=== PATIENT | female | born 1980 | race Caucasian/White ===

== ENCOUNTER 2024-01-06 11:33 | Outpatient (REF) | payer MEDICAID, SELFPAY ==
--- NOTE | 2024-01-06 10:55 | PAPFT_PTH ---
PATIENT: Christine Sanchez LOC: [facility] U#:[id number] AGE/SX: 43/F ROOM: RE01/06/[address]: Krystal Hawk NP : 1980 BED: DIS: 01/06/2024 SPEC #: [id number] RECD: 01/06/24 13:08 STATUS: KAYLA PLAZA #: [id number] RAF: 01/06/24 10:[address]: Krystal Hawk NP DEPT: [facility] Cytology RECD BY: Cleo Nance ENTERED: 01/06/24 13:08 SP TYPE: PAPFT OT DR: None Tissues: 1 - CX/ENDOCX FOR PAP SMEARS Procedures: PAP THIN PREP/[facility] Screening HPV DNA PROBE Comments: [id number]
== END 2024-01-06 11:34 | disposition home or self-care (01) ==
LOC: LBN 11:33
PROVIDERS: Visit Provider Nurse Practitioner Women's Health
DX: Z01.419 Encounter for gynecological examination (general) (routine) without abnormal findings (principal); Z12.4 Encounter for screening for malignant neoplasm of cervix; Z87.410 Personal history of cervical dysplasia; Z12.31 Encounter for screening mammogram for malignant neoplasm of breast
CPT/HCPCS: 88142; 87624

== ENCOUNTER → 2024-01-10 00:19 | Outpatient (CLI) | payer MEDICAID, SELFPAY ==
--- NOTE | 2024-01-10 12:00 | DI.MAMMO_ITS ---
Exam(s) MAMMO SCREENING EXAM: MAMMO SCREENING CLINICAL HISTORY: screening TECHNIQUE: Mammograms were interpreted according to the usual protocol including computer analysis w [employer] CAD system, tomosynthesis and C-view imaging. COMPARISON: None. Baseline examination. FINDINGS: The breasts are composed of heterogeneously dense fibroglandular densities, Breast Density category C . No suspicious masses or suspicious microcalcifications are seen. No skin thickening or abnormal axillary lymph nodes are seen. IMPRESSION: BI-RADS Category 1, Negative mammogram. Yearly screening mammography is recommended. Breast Density Category C, heterogeneously Dense. The mammogram demonstrates the patient's breast tissue is dense. Dense breast tissue is very common a nd is not abnormal but dense breast tissue can make it harder to find cancer on a mammogram. Also, de nse breast tissue may increase breast cancer risk. This information about the result of the mammogram report was provided to the patient to raise their awareness. Use this report when you speak with the patient about their risks for breast cancer, which includes their family history. At that time, you may recommend additional screening tests (Ultrasound or MRI) as they might be useful based on their r isk. A negative radiographic report should not delay biopsy if a dominant or clinically suspicious mass is present. Up to ten percent of cancers are not identified on mammography. A negative report may reinforce clinical impression. Adenosis and dense breasts may obscure an underlying neoplasm. False positive reports average 6 to 10%.
== END ==
PROVIDERS: Visit Provider Nurse Practitioner Women's Health
DX: Z12.31 Encounter for screening mammogram for malignant neoplasm of breast (principal); R92.333 Mammographic heterogeneous density, bilateral breasts
CPT/HCPCS: 77063; 77067

== ENCOUNTER 2024-01-10 02:45 | Outpatient (CLI) | payer MEDICAID, SELFPAY ==
[2024-01-10 11:24] LABS: HCT 37.5 % (36.0-46.0); HGB 11.8 g/dL (11.2-15.7); MCH 27.5 pg (27.0-33.0); MCHC 31.5 % (32.0-36.0); MCV 87 fL (80-95); MPV 8.6 fL (8.0-11.0); Platelet Count 326 10^3/uL (130-400); RBC 4.29 10^6/uL (3.93-5.22); RDW 14.1 % (11.7-14.6); RDW-SD 45.2 fL; WBC 5.75 10^3/uL (4.4-10.8)
[2024-01-10 11:54] LABS: ALT 13 U/L (14-59); AST 14 U/L (15-37); Albumin 3.9 g/dL (3.4-5.0); Alkaline Phosphatase 43 U/L (46-116); BUN 11 mg/dL (7-18); Bilirubin, Total 0.5 mg/dL (0.2-1.0); CREATININE 0.8 mg/dL (0.55-1.02); Calcium 8.7 mg/dL (8.5-10.1); Calculated LDL 131 mg/dL (<100); Chloride 106 mmol/L (98-107); Cholesterol 219 mg/dL (<200); Glucose 95 mg/dL (74-106); HDL Cholesterol 73 mg/dL (40-60); Potassium 3.8 mmol/L (3.5-5.1); Sodium 141 mmol/L (136-145); TSH (W/Ref FT4) 2.83 uIU/mL (0.36-3.74); Total Protein 7.5 g/dL (6.4-8.2); Triglyceride 75 mg/dL (<150)
== END 2024-01-10 02:46 | disposition home or self-care (01) ==
LOC: LBO 02:47
PROVIDERS: Visit Provider Nurse Practitioner Women's Health
DX: Z01.419 Encounter for gynecological examination (general) (routine) without abnormal findings (principal); Z13.220 Encounter for screening for lipoid disorders; R63.5 Abnormal weight gain
CPT/HCPCS: 36415; 80053; 80061; 85027; 84443

== ENCOUNTER 2024-01-21 15:48 | Outpatient (REF) | payer MEDICAID, SELFPAY ==
--- NOTE | 2024-01-21 13:20 | CER_PTH ---
PATIENT: Christine Sanchez LOC: [facility] U#:[id number] AGE/SX: 43/F ROOM: RE01/21/[address]: Yana Woodard MD : 1980 BED: DIS: 01/21/2024 SPEC #: [id number] RECD: 01/21/24 16:00 STATUS: KAYLA REQ #: [id number] RAF: 01/21/24 13:[address]: Yana Woodard DEPT: Surgical Specimen RECD BY: Lidia Benoit ENTERED: 01/21/24 16:02 SP TYPE: CER OTHR DR: Unknown,Unknown Tissues: 1 - CERVICAL BIOPSY Procedures: GROSS AND MICRO LEVEL 4 Comments: [id number]
== END 2024-01-21 15:49 | disposition home or self-care (01) ==
LOC: LBN 15:48
PROVIDERS: Visit Provider Obstetrics & Gynecology
DX: Z87.410 Personal history of cervical dysplasia (principal); R87.613 High grade squamous intraepithelial lesion on cytologic smear of cervix (HGSIL)
CPT/HCPCS: 88305

== ENCOUNTER 2024-03-03 11:19 | Outpatient (REF) | payer MEDICAID, SELFPAY ==
--- NOTE | 2024-03-03 09:45 | CER_PTH ---
PATIENT: Christine Sanchez LOC: [facility] U#:[id number] AGE/SX: 43/F ROOM: RE03/03/[address]: Yana Woodard MD : 1980 BED: DIS: 03/03/2024 SPEC #: [id number] RECD: 03/03/24 13:04 STATUS: KAYLA REQ #: [id number] RAF: 03/03/24 09:[address]: Yana Woodard DEPT: Surgical Specimen RECD BY: Cleo Nance ENTERED: 03/03/24 13:04 SP TYPE: CER FAN DR: Unknown,Unknown Tissues: 1 - CERVICAL BIOPSY Procedures: GROSS AND MICRO LEVEL 5 Comments: [id number]
== END 2024-03-03 11:20 | disposition home or self-care (01) ==
LOC: LBN 11:19
PROVIDERS: Visit Provider Obstetrics & Gynecology
DX: R87.619 Unspecified abnormal cytological findings in specimens from cervix uteri (principal)
CPT/HCPCS: 88305; 88307

== ENCOUNTER 2025-01-12 11:12 | Outpatient (REF) | payer MEDICAID, SELFPAY ==
--- NOTE | 2025-01-12 09:10 | PAPFT_PTH ---
PATIENT: Christine Sanchez LOC: [facility] U#:[id number] AGE/SX: 44/F ROOM: RE01/12/[address]: Krystal Hawk NP : 1980 BED: DIS: 01/12/2025 SPEC #: [id number] RECD: 01/12/25 13:01 STATUS: KAYLA REBelkis #: [id number] RAF: 01/12/25 09:[address]: Carine ALFARO,Krystal DEPT: [facility] Cytology RECD BY: Cleo Nance ENTERED: 01/12/25 13:01 SP TYPE: PAPFT OT DR: Unknown,Unknown Tissues: 1 - CX/ENDOCX FOR PAP SMEARS Procedures: PAP THIN PREP/[facility] Screening HPV DNA PROBE Comments: [id number] (HPV 16 & 18/45)
== END 2025-01-12 11:13 | disposition home or self-care (01) ==
LOC: LBN 11:12
PROVIDERS: Visit Provider Nurse Practitioner Women's Health
DX: Z12.4 Encounter for screening for malignant neoplasm of cervix (principal)
CPT/HCPCS: 88142; 87624

== ENCOUNTER 2025-03-09 01:48 | Outpatient (CLI) | payer MEDICAID, SELFPAY ==
--- NOTE | 2025-03-09 12:00 | DI.MAMMO_ITS ---
Exam(s) MAMMO SCREENING EXAM: MAMMO SCREENING CLINICAL HISTORY: screening. TECHNIQUE: Bilateral full field digital CC and MLO mammographic images were obtained with 3D tomosynthesis and utilizing computer aided detection (CAD). COMPARISON: Prior baseline mammogram of 2023 was reviewed FINDINGS: There has been no significant change in the appearance and distribution of the fibroglandular tissue. There are no new spiculated masses nor malignant appearing microcalcification groups. There is no significant architectural distortion nor skin thickening-retraction. IMPRESSION: No radiographic evidence of malignancy. BI-RADS Category 1 - Negative Breast Density - Category C - The breast are heterogeneously dense, which may obscure small masses. Breast density Category C or D implies that the patient has dense breast tissue. Dense breast tissue can make it harder to find cancer on a mammogram. Dense breast tissue is also associated with an increased risk of breast cancer. This information about the result of the mammogram report was provided to the patient to raise their awareness. Use this report when you speak with the patient about their risks for breast cancer, which includes their family history. At that time, you may recommend additional screening tests (Ultrasound or MRI) as these tests may add significant information. A negative radiographic report should not delay biopsy if a dominant or clinically suspicious mass is present. Up to ten percent of cancers are not identified on mammography. A negative report may reinforce clinical impression. Adenosis and dense breasts may obscure an underlying neoplasm. False positive reports average 6 to 10%. Patient will receive a letter notifying them of these results.
== END 2025-03-09 02:08 ==
PROVIDERS: Visit Provider Nurse Practitioner Women's Health
DX: Z12.31 Encounter for screening mammogram for malignant neoplasm of breast (principal); R92.333 Mammographic heterogeneous density, bilateral breasts
CPT/HCPCS: 77063; 77067